=== PATIENT | male | born 2000 | race Two or more races ===

== ENCOUNTER → 2019-08-26 | Outpatient (CLI) | payer OTHER ==
--- NOTE | 2019-08-26 10:17 | PAIN ---
DATE OF SERVICE: 08/26/2019 INITIAL CONSULTATION FOR PAIN CLINIC CHIEF COMPLAINT: Mid and low back pain. HISTORY OF PRESENT ILLNESS: This is a 19-year-old male who presents with history of pain for about 2 years. 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 The patient reports it is in the mid upper back, not radiating into the lower extremity significantly, occasionally into the hips with some popping in the hips, but mostly in the mid upper back. The patient reports it is worse with walking, standing, changing positions, daily activities, bending, stooping. The patient reports it generally does not awake him from sleep at night, better with sitting or lying down, worse with walking and standing, does not affect his ability to walk or bowel or bladder control. The patient has had physical therapy in the past, also chiropractic treatment and epidural injections, which did help. The chiropractic treatment helped as well, but physical therapy did not. The patient reports it is about a year ago or so. The patient is taking Flexeril by about a month ago and that did help the pain as well. The patient reports the pain is constant, aching, sometimes shooting, sharp and cramping in the mid upper back. The patient rates his disability rating from 0-10, 10 being the worst, 3 with family home responsibilities and recreation, 2 with social activity, 4 with occupation activities. The patient reports no loss of motor function, no bowel or bladder incontinence or other complaints. He did have MRI scan of the thoracic spine. Pending results of the lumbar spine, those results were not forwarded with his medical records. Thoracic spine showing multilevel mid thoracic spondylosis with mild anterior wedging of T7 without marrow edema indicating chronicity accentuated thoracic kyphosis. Again, lumbar spine pending at time of this dictation. PAST MEDICAL HISTORY: Significant for cigarette smoking, quit about a year ago; numbness in the legs, left greater than right; pain in the back is noted. No other significant medical history. PAST SURGICAL HISTORY: No previous surgeries. CURRENT MEDICATIONS: [id number] ibuprofen. ALLERGIES: The patient has no known drug allergies. FAMILY HISTORY: Significant for diabetes, heart disease, stroke in the patient's father, heart disease in the patient's grandparents on both sides of sibling. SOCIAL HISTORY: The patient does not drink alcohol, does not smoke, quit 9 years ago, not use any illegal, illicit or recreational drugs. He is single, active, duty as a prisoner in custody currently. REVIEW OF SYSTEMS: The review of systems is positive for those items mentioned in history of present illness. All systems reviewed and otherwise negative. It is complete, full and well documented on the patient's chart. PHYSICAL EXAMINATION: VITAL SIGNS: The patient's blood pressure is 119/69, pulse 70, respirations 18, temperature 97.8 degrees Fahrenheit, height is 5 feet 7 inches, weighs 179 pounds. GENERAL: The patient is awake, alert, oriented, appropriate, very pleasant demeanor. HEENT: Shows normocephalic, atraumatic. Extraocular movements are intact and symmetrical. Oral cavity: Mucous membranes moist and pink. Dentition is intact. NECK: Shows anterior throat supple without palpable lymphadenopathy noted. Swallow reflex symmetrical. CHEST: Shows normal on inspection. Breath sounds are clear bilaterally. HEART: Shows S1, S2 clear. No murmurs auscultated. ABDOMEN: Soft, nontender, nondistended. No palpable organomegaly is noted. There is no rebound or guarding demonstrated. BACK: Shows spine grossly in the midline, normal-appearing cervical lordotic curvature, thoracic kyphosis slightly increased, and lumbar lordotic curvature appears normal, curvature of the patient's thoracic distribution shows moderate tenderness with palpation, although symmetrical on inspection with paraspinous musculature moderately tender with palpation in the bilateral paraspinous musculature throughout the mid and upper distribution. Thoracic paraspinous muscles are very firm, very tight and tender. This is true throughout the lumbar spine as well bilaterally, very firm tight musculature in the paraspinous distribution, although symmetrical without evidence of atrophy, hypertrophy or trigger points. Spinous processes show significant tenderness in the mid upper back with direct palpation, but not in the distribution above at approximately T5. Lumbar spinous process is also nontender to direct palpation. No tenderness to spinous processes or the sacroiliac regions bilaterally. The patient has good rotational motion of lumbar and thoracic spine with moderate tenderness greater to the left than the right in the mid upper back without significant radiation. No difficulty with lumbar rotational motion both laterally as well as extension and flexion without significant increase in pain. EXTREMITIES: The patient's lower extremities show deep tendon reflexes 2+ in the patellar, 1+ tendo-calcaneus tendons. Motor exam is strong with 5/5 dorsiflexion, extension, quadriceps and hamstring flexion. Peripheral pulses are 1+ posterior tibia. No peripheral edema is noted. Lower extremities are warm and dry to touch, equal in color and appearance. The patient is able to stand, stand on the toes without difficulty or loss of balance, walks with a normal-appearing gait, not using any assistive devices to ambulate such as canes or walkers. SKIN: Shows warm and dry, good turgor. No edema. No sores, rashes or bruising throughout. IMPRESSION: 1. This is a 19-year-old male with approximately 2-year history after falling on ice and previous duty with a significant mid and upper back pain. 2. MRI scan of the thoracic spine as reported with T7 compression fracture and spondylosis. PLAN: Options were discussed with the patient including conservative medical managements, physical therapies and interventional techniques and he has done interventional techniques in the past with good success. Also, he has tried physical therapy, still doing stretching and strengthening exercises on his own he reports and taking anti-inflammatories. The patient would like to pursue interventional techniques. We discussed a thoracic epidural steroid injection using description as well as anatomical models to describe the procedure. We will wait for preauthorization with patient's insurance provider and plan on thoracic epidural steroid injection at the T7-T8 level on return. In the meantime, the patient will continue with stretching exercises, anti-inflammatories as prescribed. DC BONILLA MD DR: TUCKER/marni JOB#: [id number] / [id number]
== END | disposition home or self-care (01) ==
LOC: PNCL 07:45 → EEVIPCON 08:00
PROVIDERS: ATTEND Anesthesiology
DX: S22.060D Wedge compression fracture of T7-T8 vertebra, subsequent encounter for fracture with routine healing (principal); W19.XXXD Unspecified fall, subsequent encounter; M47.894 Other spondylosis, thoracic region; M40.294 Other kyphosis, thoracic region; M40.46 Postural lordosis, lumbar region; M43.8X4 Other specified deforming dorsopathies, thoracic region
CPT/HCPCS: G0463

== ENCOUNTER → 2019-10-03 | Outpatient (CLI) | payer OTHER ==
[~2019-10-03] MED LIST: CYCL10TA2 PO; IOHEXOL 180 MG/ML 10 ML VIAL. ONE; methylPREDNISolone ACETATE 40 MG/ML VIAL. ONE; methylPREDNISolone ACETATE 80 MG/ML VIAL. ONE
--- NOTE | 2019-10-03 08:25 | PDOC ---
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 Patient reports still significant pain mid upper back radiating to the right side greater than the left in the mid back between the shoulder blades but also rating the lower back to some extent as well. Patient reports is no significant changes reports is a 7 on scale of 10 is worse over the past week 6 on average 3 its least is a 5 today patient ports pain is radiating constant dull worse with activity worse with bending stooping working walking standing change positions generally does not awaken him from sleep at night is better with laying down or sitting still. Patient reports no new motor or sensory deficits no new bowel or bladder incontinence or other complaints. Patient's MRI scan was reviewed with him thoracic spine showing posterior disc bulge and osteophyte complexes T6-7, T7-8, T8-9 and, T9-10. Physical Exam: VS: Blood pressure is 115/62 pulse 75 respirations are 16 temperature is 90.2 F h eight is 5 feet 7 inches weight is 177 pounds PE: PHYSICAL EXAMINATION: GENERAL: The patient is awake, alert, oriented, appropriate, very pleasant demeanor HEENT: Shows normocephalic, atraumatic. Extraocular movements are intact and symmetrical. Oral cavity: Mucous membranes moist and pink. Dentition is intact. NECK: Shows anterior throat supple without palpable lymphadenopathy noted. Swallow reflex symmetrical. CHEST: Shows normal on inspection. Breath sounds are clear bilaterally. HEART: Shows S1, S2 clear. No murmurs. ABDOMEN: Soft, nontender, nondistended. No palpable organomegaly is noted. No rebound or guarding demonstrated. BACK: Shows spine grossly in the midline. Normal-appearing cervical lordotic curvature. There is slightly increased thoracic kyphosis, some minor flattening of the lumbar lordotic curvature. Lumbar paraspinous muscles show symmetrical on inspection, on palpation shows some moderate tenderness diffusely throughout the upper, middle and lower distribution of the paraspinous muscles bilaterally and also into the mid and upper thoracic paraspinous musculature, firm and tender, but without specific trigger points, without radiation of pain. The patient has good rotational motion of the lumbar and thoracic spine, both laterally as well as extension and flexion without significant difficulty. No tenderness over the spinous processes, sacrum or sacroiliac regions. EXTREMITIES: Lower extremities show deep tendon reflexes 2+ in the patellar and tendo calcaneus tendons. Motor exam is 5 on a scale of 5 with right dorsiflexion, extension, quadriceps and hamstring flexion and 5/5 on the left. Peripheral pulses are 1+ posterior tibial. No peripheral edema is noted bilaterally. Lower extremities are warm and dry to touch, equal in color and appearance. SKIN: Shows warm and dry, good turgor. No edema. No sores, rashes or bruising throughout. Procedure: Procedure: Options were discussed with the patient. Patient's old chart was reviewed his his current medication regimen updated current review of systems updated today as well. We will proceed with a thoracic epidural steroid injection today with fluoroscopic guidance risks were discussed including but not limited to bleeding infection possibility of epidural hematoma and subsequent neurological compromise dural puncture headache spinal cord and or nerve damage side effects of steroid medication and poor results going pain control. Patient understands wished to proceed. Patient return to clinic in approximately 2 weeks for follow-up was counseled as to return appointment activity level and side effects to be aware. Patient in custody will make arrangements through [facility] for return. Medication Injected: Med Injected: Procedure is thoracic epidural steroid injection under local anesthetic using sterile prep and drape at the T7-8 level using C-arm fluoroscopic guidance in both AP and lateral views medications injected is 120 mg Depo-Medrol + 10 mL preservative-free normal saline and 2 mL Isovue for contrast- condition at discharge is stable patient tolerated procedure well had no complications. Condition at Discharge: Condition at Discharge: Condition at discharge is stable patient tolerated procedure well had no complications. DC BONILLA MD Oct 03, 2019 08:25
== END | disposition home or self-care (01) ==
LOC: PNCL 07:44 → EEVIPCON 08:00
PROVIDERS: ATTEND Anesthesiology
DX: M51.14 Intervertebral disc disorders with radiculopathy, thoracic region (principal); M48.54XA Collapsed vertebra, not elsewhere classified, thoracic region, initial encounter for fracture; Z88.8 Allergy status to other drugs, medicaments and biological substances; Z79.899 Other long term (current) drug therapy
CPT/HCPCS: 62321; J1030; J1040; Q9965